=== PATIENT | male | born 1970 | race Caucasian/White ===

== ENCOUNTER → 2016-12-27 | Outpatient (CLI) | payer MEDICARE, OTHER ==
[~2016-12-27] MED LIST: BACID PO; BISACODYL10 MG/SUP3 RC; CALCIUM CITRATE1 T15 PO; CENTRUM PO; CHRONULAC10 GM/15 M PO; CLARITIN10 M2 PO; DEPAKOTE 125 MG; DEPAKOTE SPRIN125 MG; DEPAKOTE SPRIN125 MG PO; DIASTAT10 MG PR; DULCOLAX10 MG/SUPP; FAST RELIEF LAX10 MG PR; FLONASE ALLERG9.9 ML; FOSAMAX; FOSAMAX70 MG PO; ISONIAZID300 MG PO; KEPPRA1000 MG PO; KEPPRA250 MG PO; KEPPRA500 M1 PO; KEPPRA750 MG; LACTULOSE10 G/15 M1; LACTULOSE10 G/15 M1 PO; LAMICTAL ODT200 MG PO; LAMOTRIGINE150 MG PO; LAMOTRIGINE200 MG PO; LAMOTRIGINE25 M1 PO; LEVOTHYROXINE100 MCG PO; MILK OF MAGNESIA PO; MIRALAX17 GM PO; MIRALAX255 GM PO; MULTI-VITAMIN1 TAB; OYSTER CALCIUM500 MG; OYSTER SHELL CA1 TA5 PO; PRILOSEC20 MG PO; PYRIDOXINE HCL50 MG PO; RANITIDINE HCL150 M1 PO; SENNA S TABLET1 TAB; SENNA-LAX8.6 M1 PO; SENNA8.6 M1 PO; SINGULAIR; SUDAFED PE PO; SUDAFED30 M1; SUDAFED30 M1 PO; SYNTHROID; THERAGRAN1 TAB PO; TUSSIN100 MG/51 PO; VIMPAT100 MG PO; VIMPAT150 MG PO; ZONEGRAN100 MG PO; [UNRECOGNIZED DRUG - REMARK] SQ
== END | disposition home or self-care (01) ==
LOC: CLAB 10:34
DX: J69.0 Pneumonitis due to inhalation of food and vomit (principal)
CPT/HCPCS: 74230; 92611; G8996-GN; G8997-GN; G8998-GN

== ENCOUNTER → 2017-04-16 | Outpatient (CLI) | payer MEDICARE, OTHER ==
--- NOTE | ~2017-04-16 | US77 ---
[facility] A Service of [facility] RADIOLOGY TEXT RESULTS PATIENT: NASEEM YOO LOCATION: [facility] : 68 UNIT #: [id number] AGE: [address]: MITZY HERNANDEZ SEX: M ORDER DR: [id number] [address] [address] [id number] MR#: [id number] Acc #: [id number] NAME: NASEEM YOO : 1970 SEX: M STUDY DATE/TIME: 04/16/2017 12:35 UNIT: [facility]US ROOM: STUDY DESCRIPTION: US Kidney Bilateral Complete Attending Physician: Mitzy Hernandez Referring Physician: Mitzy Hernandez Ordering Physician: Physician Non-Staff Primary Care Physician: Rahul Marshall Sr., M.D. MEDICAL IMAGING REPORT This report is preliminary unless electronic signature is present EXAM Renal ultrasound. INDICATIONS Recurrent urinary tract infections. TECHNIQUE Dominguez-scale and color Doppler sonographic images were obtained through the kidneys and bladder. FINDINGS Images of the kidneys are extremely technically limited; I do not see any obvious hydronephrosis. Urinary bladder does appear thick-walled. This may be partially related to incomplete distension, but certainly, the patient does have a history of urinary tract infections and this could reflect some changes of cystitis. IMPRESSION 1. Evaluation of the kidneys is significantly compromised by technique. No obvious hydronephrosis is seen. 2. Bladder does appear thick-walled. The patient does have a history of recurrent UTIs and this certainly could reflect some changes of cystitis. Dictated by... Lana Neff M.D. THIS IS AN ELECTRONICALLY VERIFIED REPORT Lana Neff M.D. at 04/18/2017 11:21 AM AFF/psc TD: 04/16/2017 21:21 [facility] A Service of [facility] RADIOLOGY TEXT RESULTS PATIENT: NASEEM YOO LOCATION: [facility] : 68 UNIT #: [id number] AGE: [address]: MITZY HERNANDEZ SEX: M ORDER DR: JOB #: [id number] MEDICAL IMAGING REPORT Page 1 of 1 COPY
== END | disposition home or self-care (01) ==
LOC: CGUS 12:00
DX: N39.0 Urinary tract infection, site not specified (principal)
CPT/HCPCS: 76770

== ENCOUNTER → 2017-06-08 | Outpatient (CLI) | payer MEDICARE, OTHER | END | disposition home or self-care (01) | LOC: CSSDAY 09:30 | DX: M81.0 Age-related osteoporosis without current pathological fracture (principal) | CPT/HCPCS: 96372; J0897 ==